=== PATIENT | female | born 1960 | race Caucasian/White ===

== ENCOUNTER 2017-06-08 18:46 | Emergency (ER) | payer MEDICAID ==
[2017-06-08] MEDS: IPRATROPIUM/ALBUTEROL (0.5MG/3MG) NEB INH ONE (20:02)
--- NOTE | 2017-06-08 20:56 | Emergency Department Record ---
History of Present Illness - General Chief Complaint: Cough Stated Complaint: COUGH,SHORT OF BREATH, HIGH BLOOD PRESSURE Time Seen by Provider: 06/08/17 19:48 Source: Patient Mode of Arrival: Ambulatory Limitations: No limitations - History of Present Illness Initial Comments: pt has green productive cough. pt has hx of copd and still smokes. she had a fever earlier. she is attempting to get in with dr schofield. she has no primary care dr. she stopped taking her bp meds. she still smokes. MD Complaint: Cough, Fever Onset/Timin -: Week(s) Severity: Mild Consistency: Constant Improves With: Nothing Worsens With: Nothing Context: Sick contacts Associated Symptoms: Chills, Cough, Shortness of breath - Related Data Home Medications Medication Instructions Recorded Confirmed Last Taken Albuterol Sulfate 0.083% [Neb] 3 ml NEB .EVERY 4-6 HOURS PRN 06/08/17 06/08/17 06/08/17 Albuterol Sulfate [Ventolin Hfa] 1 - 2 puff IH .EVERY 4-6 HOURS PRN 06/08/1706/08/17 Aspirin Chewable 81 mg PO DAILY 06/08/17 06/08/17 Unknown Previous Rx's Medication Instructions Recorded Albuterol Sulfate [Ventolin Hfa] 1 - 2 puff IH .EVERY 4-6 HRS PRN 06/08/17 #1 inhaler Azithromycin [Zithromax] 250 mg PO DAILY #4 tablet 06/08/17 Clonidine HCl [Catapres] 0.1 mg PO DAILY #5 tab 06/08/17 Lorazepam [Ativan] 0.5 mg PO BID #7 tablet 06/08/17 Allergies Allergy/AdvReac Type Severity Reaction Status Date / Time No Known Drug Allergies Allergy Verified 06/08/17 19:00 Travel Screening - Travel/Exposure Within Last 30 Days Have you traveled within the last 30 days?: No Review of Systems Reviewed: No additional complaints except as noted below Constitutional: Reports: As per HPI. Denies: Chills, Fever, Malaise, Night sweats, Weakness, Weight change Eyes: Reports: As per HPI. Denies: Eye discharge, Eye pain, Photophobia, Vision change ENT: Reports: As per HPI. Denies: Congestion, Dental pain, Ear pain, Epistaxis , Hearing loss, Throat pain Respiratory: Reports: As per HPI. Denies: Cough, Dyspnea, Hemoptysis, Stridor, Wheezes Cardiovascular: Reports: As per HPI. Denies: Arrhythmia, Chest pain, Dyspnea on exertion, Edema, Murmurs, Orthopnea, Palpitations, Paroxysmal nocturnal dyspnea, Rheumatic Fever, Syncope Endocrine: Reports: As per HPI. Denies: Fatigue, Heat or cold intolerance, Polydipsia, Polyuria Gastrointestinal: Reports: As per HPI. Denies: Abdominal pain, Constipation, Diarrhea, Hematemesis, Hematochezia, Melena, Nausea, Vomiting Genitourinary: Reports: As per HPI. Denies: Abnormal menses, Discharge, Dyspareunia, Dysuria, Frequency, Hematuria, Incontinence, Retention, Urgency Musculoskeletal: Reports: As per HPI. Denies: Arthralgia, Back pain, Gout, Joint swelling, Myalgia, Neck pain Skin: Reports: As per HPI. Denies: Bruising, Change in color, Change in hair/ nails, Lesions, Pruritus, Rash Neurological: Reports: As per HPI. Denies: Abnormal gait, Confusion, Headache, Numbness, Paresthesias, Seizure, Tingling, Tremors, Vertigo, Weakness Psychiatric: Reports: As per HPI. Denies: Anxiety, Auditory hallucinations, Depression, Homicidal thoughts, Suicidal thoughts, Visual hallucinations Hematological/Lymphatic: Reports: As per HPI. Denies: Anemia, Blood Clots, Easy bleeding, Easy bruising, Swollen glands Past Medical History - SOCIAL HISTORY Smoking Status: Current every day smoker Alcohol Use: None Drug Use: None - RESPIRATORY Hx Respiratory Disorders: Yes Hx COPD: Yes - CARDIOVASCULAR Hx Cardio Disorders: Yes Hx Heart Attack: Yes Hx Hypertension: Yes - NEURO Hx Neuro Disorders: No - GI Hx GI Disorders: No - Hx Genitourinary Disorders: No - ENDOCRINE Hx Endocrine Disorders: No - MUSCULOSKELETAL Hx Musculoskeletal Disorders: Yes Hx Fibromyalgia: Yes Comment:: Lupus - PSYCH Hx Psych Problems: No - HEMATOLOGY/ONCOLOGY Hx Hematology/Oncology Disorders: Yes Hx Cancer: Yes (cervical) Family Medical History Any Significant Family History?: Yes Hx Diabetes: Brother/Sister Hx Heart Disease: Mother Hx Resp Disorders: Father, Mother Physical Exam - General General Appearance: Alert, Oriented x3, Cooperative, Mild distress, Other ( cachectic) - Head Head exam: Normal inspection - Eye Eye exam: Normal appearance, PERRL, EOMI Pupils: Normal accommodation - ENT ENT exam: Normal exam, Mucous membranes moist, Normal external ear exam, Normal orophraynx Ear exam: Normal external inspection. negative: External canal tenderness Nasal Exam: Normal inspection. negative: Discharge, Sinus tenderness Mouth exam: Normal external inspection, Tongue normal Teeth exam: Normal inspection. negative: Dental caries Throat exam: Normal inspection. negative: Tonsillar erythema, Tonsillar exudate - Neck Neck exam: Normal inspection, Full ROM. negative: Tenderness - Respiratory Respiratory exam: Wheezes. negative: Respiratory distress - Cardiovascular Cardiovascular Exam: Regular rate, Normal rhythm, Normal heart sounds - GI/Abdominal GI/Abdominal exam: Soft, Normal bowel sounds. negative: Tenderness - Rectal Rectal exam: Deferred - exam: Deferred - Extremities Extremities exam: Normal inspection, Full ROM, Normal capillary refill. negative: Tenderness - Back Back exam: Reports: Normal inspection, Full ROM. Denies: Muscle spasm, Rash noted, Tenderness - Neurological Neurological exam: Alert, CN II-XII intact, Normal gait, Oriented X3 - Psychiatric Psychiatric exam: Normal affect, Normal mood - Skin Skin exam: Dry, Intact, Normal color, Warm Course Vital Signs 06/08/17 06/08/17 18:56 20:02 Temperature 98.6 F Pulse Rate 77 72 Respiratory 22 20 Rate Blood Pressure 186/119 Pulse Ox 92 L - Reevaluation(s) Reevaluation #1: 06/08/17 23:40 ct showsfindings consistent w bronchogenic carcinoma with mets. pt refusing admission . pt told of risks Medical Decision Making - Lab Data Result diagrams: 06/08/17 21:32 06/08/17 21:32 Disposition Disposition: Other Clinical Impression: Mass of lung, Adrenal mass, Bronchitis Hypertension Qualifiers: Hypertension type: unspecified Qualified Code(s): I10 - Essential (primary) hypertension Disposition: Against Medical Advice Condition: (2) Stable Instructions: Acute Bronchitis (ED), Hypertension (ED), Pulmonary Nodules (ED) Additional Instructions: follow up in am with dr schofield. may return at any time Prescriptions: Albuterol Sulfate [Ventolin Hfa] 1 - 2 puff IH .EVERY 4-6 HRS PRN #1 inhaler PRN Reason: Difficulty In Breathing Azithromycin [Zithromax] 250 mg PO DAILY #4 tablet Clonidine HCl [Catapres] 0.1 mg PO DAILY #5 tab Lorazepam [Ativan] 0.5 mg PO BID #7 tablet Forms: Patient Portal Access, Return to Work/School Quality - Quality Measures Quality Measures: N/A - Blood Pressure Screening Does Patient Have Any of the Following: No Blood Pressure Classification: Hypertensive Reading Systolic Measurement: 186 Diastolic Measurement: 119 Screening for High Blood Pressure: < First Hypertensive BP, F/U Documented > [ G8950] First Hypertensive Follow-up Interventions: Follow-up with rescreen GT 1 day and LT 4 weeks., Referral to alternative/primary care provider.
[2017-06-08] MEDS: AZITHROMYCIN 500 MG TABLET PO ONE (21:27)
[2017-06-08 21:34] LABS: BASO % 0.3 % (0-6); GRAN % 70.6 % (47-80); HEMATOCRIT 43.2 % (35.0-47.0); HEMOGLOBIN 14.5 gm/dl (11.6-16.0); LYMPH % 16.1 % (16-45); MEAN CELL VOLUME 94.9 fl (81-97); MEAN CORPUSCULAR HEMOGLOBIN 31.9 pg (27-33); MEAN CORPUSCULAR HGB CONC 33.6 g/dl (32-36); MEAN PLATELET VOLUME 9.8 fl (7.4-10.4); PLATELET COUNT 211 K/uL (130-400); RED BLOOD COUNT 4.55 M/uL (3.80-5.40); RED CELL DISTRIBUTION WIDTH 14.1 % (11.5-14.5); WHITE BLOOD COUNT W/O DIFF 9.3 K/uL (4.2-12.2)
[2017-06-08 21:50] LABS: CREATININE 0.9 mg/dL (0.5-0.9); EST GLOMERULAR FILTRATION RATE > 60 mL/min; GLUCOSE,RANDOM 98 mg/dL (74-109)
[2017-06-08] MEDS: 0.9 % SODIUM CHLORIDE 1,000 ML BAG IV ONE (22:34)
[2017-06-08] MEDS: CLONIDINE HCL 0.1 MG TABLET PO ONE (22:34)
[2017-06-08] MEDS ORDERED: AZITHROMYCIN 500 MG TABLET PO ONE (23:40)
[2017-06-09] MEDS: LORAZEPAM 0.5 MG TABLET PO ONE (00:03)
--- NOTE | 2017-06-09 14:45 | RADIOLOGY REPORT ---
EXAM: CHEST, TWO VIEWS HISTORY: PRODUCTIVE COUGH AND DYSPNEA FOR TWO WEEKS. COPD. TECHNIQUE: Two views of the chest were obtained. FINDINGS: The lungs are hyperaerated consistent with emphysematous change. There is suture mature within the left lung apex which may relate to previous wedge resection. Please note there is an irregular opacity within the left hilar region and anterior mediastinum. Mass not excluded. No focal consolidation or pleural effusion. Borderline cardiomegaly. IMPRESSION: 1. IRREGULAR OPACITY WITHIN THE LEFT HILAR REGION AND ANTERIOR MEDIASTINUM MASS NOT EXCLUDED. DEDICATED CT CHEST WOULD BE RECOMMENDED FOR FURTHER ASSESSMENT. 2. PROMINENT EMPHYSEMATOUS CHANGE/COPD. PREVIOUS SURGICAL CHANGE LEFT LUNG APEX. 3. BORDERLINE CARDIOMEGALY. JOB NUMBER: [id number] [facility]
--- NOTE | 2017-06-09 15:11 | CT SCAN REPORT ---
EXAM: CT OF THE CHEST WITH CONTRAST HISTORY: DYSPNEA. COPD. ABNORMAL CHEST RADIOGRAPH. TECHNIQUE: Routine CT images of the chest were obtained following intravenous administration of contrast. The amount and type of contrast is in the medical record. FINDINGS: There is marked abnormality within the chest. Note is made of a left hilar soft tissue mass measuring approximately 2 cm size range. There is associated nodular pleural thickening within the left hemithorax especially anteromedially. In addition there appears to be a loculated effusion on the left especially inferiorly with enhancing septations. Suspect bronchogenic carcinoma. In addition there is mediastinal lymph node enlargement including a left paratracheal lymph node measuring 12 mm short axis, subcarinal lymph node measuring 10 mm short axis, and 11 mm short axis right hilar lymph node. The lung parenchyma demonstrates severe emphysema. Previous wedge resection left lung apex. There is an 8 mm spiculated nodule within the posterior left upper lobe. Additionally there are at least two noncalcified pulmonary nodules within the right lower lobe measuring up to 6 mm in size. Any of these nodules could be metastatic or relate to synchronous neoplasms. Multiple enlarged lymph nodes are also present within the visualized upper abdomen also likely metastatic. There also is a 2 cm size range right adrenal nodule also probably metastatic. The aorta and pulmonary arteries enhance normally with contrast. There appears to be caliectasis involving the right kidney of unclear etiology. Consider further assessment with CT abdomen and pelvis. No clear lytic or blastic osseous lesion. IMPRESSION: 1. MARKEDLY ABNORMAL APPEARANCE OF THE LEFT CHEST ABOVE MOST CONSISTENT WITH BRONCHOGENIC CARCINOMA. NOTE IS MADE OF A MASS WITHIN THE LEFT HILAR REGION. ASSOCIATED PLEURAL AND MEDIASTINAL DISEASE. LEFT BASILAR EFFUSION WITH ENHANCING SEPTATIONS. THERE IS ASSOCIATED MEDIASTINAL AND RIGHT HILAR LYMPH NODE ENLARGEMENT WHICH ALSO EXTENDS INTO THE ABDOMEN PROBABLY METASTATIC. RIGHT ADRENAL NODULE ALSO NOTED AND PRESUMABLY METASTATIC. PET/CT MAY BE HELPFUL FOR FURTHER ASSESSMENT WELL. 2. SPICULATED NODULE LEFT UPPER LOBE WITH TWO ADDITIONAL NODULES WITHIN THE LEFT LOWER LOBE MEASURING UP TO 6 MM IN SIZE ALSO SUSPICIOUS FOR NEOPLASM. PRIOR IMAGES UNAVAILABLE FOR COMPARISON. 3. SEVERE PULMONARY EMPHYSEMA. 4. ABNORMAL APPEARANCE OF THE RIGHT KIDNEY OF UNCLEAR ETIOLOGY. RECOMMEND FURTHER ASSESSMENT WITH DEDICATED CT ABDOMEN AND PELVIS. JOB NUMBER: [id number] [facility]
== END 2017-06-09 00:18 | disposition left against medical advice (07) ==
LOC: ER 18:46
DX: C34.02 Malignant neoplasm of left main bronchus (principal); J20.9 Acute bronchitis, unspecified; R06.02 Shortness of breath; I10 Essential (primary) hypertension; J44.9 Chronic obstructive pulmonary disease, unspecified; C79.71 Secondary malignant neoplasm of right adrenal gland; I25.2 Old myocardial infarction; Z85.41 Personal history of malignant neoplasm of cervix uteri; F17.210 Nicotine dependence, cigarettes, uncomplicated
CPT/HCPCS: 99284 ×2; 85025; 80048; 71020; 71260; 94640; Q9967; J7030

== ENCOUNTER 2018-09-27 18:24 | Emergency (ER) | payer MEDICAID ==
[2018-09-27] MEDS ORDERED: IPRATROPIUM/ALBUTEROL (0.5MG/3MG) NEB INH ONE ×2 (18:52→21:08)
[2018-09-27] MEDS ORDERED: METHYLPREDNISOLONE PF 125MG/VIAL IVPB ONE (18:52)
--- NOTE | 2018-09-27 18:58 | Emergency Department Record ---
History of Present Illness - General Stated Complaint: PJ Time Seen by Provider: 09/27/18 18:50 Source: Patient Mode of Arrival: Wheelchair Limitations: No limitations - History of Present Illness Initial Comments: 58 yo female presents to ED for evaluation of progressively worsening SOB for the past 7-10 days. Patient reports a history of COPD and active lung cancer, began oral chemo in Mid-August with Dr. Vela. Patient is on a baseline 2 Liters oxygen, reports that she is requiring more oxygen at home. Patient reports productive cough, fevers, and chills as well. Patient reports seeing her it investment/portfolio manager 1 week ago, received a solumedrol shot 1 week ago. MD Complaint: Shortness of breath Onset/Timin -: Days(s) Severity: Moderate Consistency: Constant Improves With: Oxygen Worsens With: Exertion Known History Of: COPD Associated Symptoms: Cough, Fever Treatments Prior to Arrival: Bronchodilator, Oxygen - Related Data Home Oxygen Therapy: Yes Home Oxygen Amount: 2 Liters Allergies Allergy/AdvReac Type Severity Reaction Status Date / Time azithromycin Allergy Mild hives Verified 09/27/18 18:57 Review of Systems Constitutional: Reports: Chills, Fever, Malaise. Denies: Night sweats Eyes: Denies: Eye discharge, Eye pain ENT: Reports: Congestion. Denies: Ear pain, Epistaxis Respiratory: Reports: Cough, Dyspnea Cardiovascular: Reports: Dyspnea on exertion. Denies: Edema, Palpitations, Paroxysmal nocturnal dyspnea Endocrine: Denies: Fatigue, Heat or cold intolerance Gastrointestinal: Denies: Abdominal pain, Nausea, Vomiting Genitourinary: Denies: Incontinence, Retention Musculoskeletal: Denies: Arthralgia, Back pain Skin: Denies: Bruising, Change in color Neurological: Denies: Abnormal gait, Confusion, Headache, Tingling, Tremors Psychiatric: Denies: Anxiety Hematological/Lymphatic: Denies: Anemia, Blood Clots Past Medical History - SOCIAL HISTORY Smoking Status: Current every day smoker Drug Use: None - RESPIRATORY Hx Respiratory Disorders: Yes Hx COPD: Yes - CARDIOVASCULAR Hx Cardio Disorders: Yes Hx Heart Attack: Yes Hx Hypertension: Yes - NEURO Hx Neuro Disorders: No - GI Hx GI Disorders: No - Hx Genitourinary Disorders: No - ENDOCRINE Hx Endocrine Disorders: No - MUSCULOSKELETAL Hx Musculoskeletal Disorders: Yes Hx Fibromyalgia: Yes Comment:: Lupus - PSYCH Hx Psych Problems: No - HEMATOLOGY/ONCOLOGY Hx Hematology/Oncology Disorders: Yes Hx Cancer: Yes (cervical) Family Medical History Hx Diabetes: Brother/Sister Hx Heart Disease: Mother Hx Resp Disorders: Father, Mother Physical Exam - General General Appearance: Alert, Oriented x3, Cooperative, Other (Cachetic appearing on examination, decreased BS bilaterally) Limitations: No limitations - Head Head exam: Atraumatic, Normocephalic, Normal inspection Head exam detail: negative: Abrasion, Contusion, Peres's sign, General tenderness, Hematoma, Laceration - Eye Eye exam: Normal appearance. negative: Conjunctival injection, Periorbital swelling, Periorbital tenderness, Scleral icterus - ENT Ear exam: negative: Auricular hematoma, Auricular trauma Nasal Exam: negative: Active bleeding, Discharge, Dried blood, Foreign body Mouth exam: negative: Drooling, Laceration, Muffled voice, Tongue elevation - Neck Neck exam: Normal inspection. negative: Meningismus, Tenderness - Respiratory Respiratory exam: Decreased breath sounds. negative: Rhonchi, Stridor, Wheezes - Cardiovascular Cardiovascular Exam: Regular rate, Normal rhythm, Normal heart sounds - GI/Abdominal GI/Abdominal exam: Soft. negative: Distended, Rebound, Rigid, Tenderness - Rectal Rectal exam: Deferred - exam: Deferred - Extremities Extremities exam: Normal inspection. negative: Pedal edema, Tenderness - Back Back exam: Denies: CVA tenderness (R), CVA tenderness (L) - Neurological Neurological exam: Alert, Oriented X3 - Psychiatric Psychiatric exam: Normal affect, Normal mood - Skin Skin exam: Normal color. negative: Abrasion Type of lesion: negative: abrasion Course - Reevaluation(s) Reevaluation #1: 09/27/18 19:42 Laboratory studies were reviewed and appear grossly unremarkable for an acute process. Reevaluation #2: 09/27/18 20:29 CT Chest: Moderate PE left lung with occlusive emboli lower lung Severe emphysema Extensive malignancy of the left alanna-thorax with extension to the surrounding nodes and left breast [facility] 1-call contacted for transfer. Xarelto ordered to be given PO while awaiting return call from [facility] EKG: NSR 94 Normal axis, normal intervals Nonspecific ST depression II, IIII, AVF Reevaluation #3: 09/27/18 21:31 [facility] 1-call returned call, case was discussed with Dr. Valdez, will accept transfer for admission and treatment. Medical Decision Making - Lab Data Result diagrams: 09/27/18 19:13 09/27/18 19:13 Disposition Disposition: Transfer Clinical Impression: Pulmonary emboli Qualifiers: Pulmonary embolism type: unspecified Chronicity: acute Acute cor pulmonale presence: without acute cor pulmonale Qualified Code(s): I26.99 - Other pulmonary embolism without acute cor pulmonale Lung cancer Qualifiers: Laterality: left Lung location: unspecified part of lung Qualified Code(s): C34.92 - Malignant neoplasm of unspecified part of left bronchus or lung Emphysema of lung Qualifiers: Emphysema type: panlobular Qualified Code(s): J43.1 - Panlobular emphysema Disposition: Acute Care Hospital Transfer Transfer To: [facility] Reason For Transfer: PE, Lung cancer Accepting Physician: José Miguel Time Discussed w/Accepting Physician: 21:36 Condition: (2) Stable Time of Disposition: 21:36 Quality - Quality Measures Quality Measures: N/A - Blood Pressure Screening Does Patient Have Any of the Following: No Blood Pressure Classification: Hypertensive Reading Systolic Measurement: 161 Diastolic Measurement: 132 Screening for High Blood Pressure: < First Hypertensive BP, F/U Documented > [ G8950] First Hypertensive Follow-up Interventions: Referral to alternative/primary care provider.
[2018-09-27 19:21] LABS: HEMATOCRIT 43.7 % (35.0-47.0); MEAN CELL VOLUME 102.6 fl (81-97); MEAN CORPUSCULAR HEMOGLOBIN 32.9 pg (27-33); MEAN PLATELET VOLUME 9.6 fl (7.4-10.4); PLATELET COUNT 153 K/uL (130-400); RED BLOOD COUNT 4.26 M/uL (3.80-5.40); RED CELL DISTRIBUTION WIDTH 14.5 % (11.5-14.5); WHITE BLOOD COUNT W/O DIFF 10.8 K/uL (4.2-12.2)
[2018-09-27 19:36] LABS: BLOOD UREA NITROGEN 18 mg/dL (6-20); CREATININE 0.7 mg/dL (0.5-0.9); EST GLOMERULAR FILTRATION RATE > 60 mL/min
[2018-09-27 19:36] LABS: INFLUENZA A NEGATIVE (NEGATIVE); INFLUENZA B NEGATIVE (NEGATIVE)
[2018-09-27 19:37] LABS: TOTAL PROTEIN 7.3 g/dL (6.6-8.7)
[2018-09-27 19:39] LABS: GLUCOSE,RANDOM 129 mg/dL (74-109)
[2018-09-27 19:42] LABS: ALB/GLOB RATIO 1.2 (1.1-1.8); ALKALINE PHOSPHATASE 141 U/L (45-87); ALT/SGPT 25 U/L (<33); AST/SGOT 24 U/L (10.0-35.0)
[2018-09-27] MEDS ORDERED: RIVAROXABAN 15 MG TABLET PO ONE (20:48)
[2018-09-27] MEDS ORDERED: ALBUTEROL (0.5% CONCENTRATED) 2.5 MG/0.5 ML VIAL.NEB INH ONE (21:08)
[2018-09-27] MEDS ORDERED: LORAZEPAM 0.5 MG TABLET PO ONE (21:22)
--- NOTE | 2018-09-28 12:30 | CT ANGIOGRAM REPORT ---
EXAM: CT ANGIOGRAM OF THE CHEST WITH CONTRAST HISTORY: DIFFICULTY BREATHING. HYPOXIA. ACTIVE CANCER. TECHNIQUE: Standard CT angiography of the chest was performed in the axial plane with contrast. 65 ml of Omnipaque 350 were administered. Additional coronal and sagittal maximum intensity projection reformatted images were performed on an independent workstation under concurrent supervision. Comparison: 06/08/17. FINDINGS: The heart is normal in size. A small pericardial effusion is present. Coronary artery calcifications are present. There is no aortic aneurysm or dissection. The ascending aorta measures 3.1 cm in diameter. There are moderate emboli within the left pulmonary arterial tree. There are nonocclusive emboli within the left upper lobe. Occlusive emboli are noted within the left lower lobe pulmonary arterial branches. There is no right embolus. A moderate to large right pleural effusion is present. There is tiny left pleural effusion. There is a focal area of mass like consolidation within the left upper lobe which abuts the medial pleural surface and extends to the hilum. This likely corresponds to the patient's known malignancy. Extensive emphysematous changes are present within both lungs. Post surgical changes are present at the left apex. A small nodular area within the posterior right lung appears similar. Compressive atelectasis is noted at the lung bases bilaterally , right greater than left. There is lymphadenopathy within the axillary regions bilaterally. Lymphadenopathy is also noted within the mediastinum and bilateral malorie consistent with metastatic disease. There is generalized left pleural thickening. This has a nodular configuration in areas. There is abnormal nodularity involving the left breast which is suspicious for malignancy. There is mild ascites within the upper abdomen. There is diffuse thickening of the left adrenal gland. Mildly enlarged lymph nodes are present within the upper retroperitoneum. The visualized portions of the liver appear normal. A 1.4 cm sclerotic lesion is present within the left posterolateral aspect of the L1 vertebral body consistent with osseous metastatic disease. IMPRESSION: 1. MODERATE EMBOLI WITHIN THE LEFT PULMONARY ARTERIAL BRANCHES. 2. PROGRESSIVE MALIGNANCY WITHIN THE LEFT UPPER LOBE AND ALONG THE PLEURAL SURFACES. THERE IS PROGRESSIVE LYMPHADENOPATHY WITHIN THE MEDIASTINUM, PULMONARY MALORIE, BILATERAL AXILLARY REGIONS, AND UPPER RETROPERITONEUM. MASSES ARE ALSO PRESENT WITHIN THE LEFT BREAST CONSISTENT WITH MALIGNANCY. 3. 1.4 CM OSTEOBLASTIC METASTATIC LESION INVOLVING THE L1 VERTEBRAL BODY. 4. MODERATE TO LARGE RIGHT PLEURAL EFFUSION AND SMALL LEFT PLEURAL EFFUSION. 5. EXTENSIVE EMPHYSEMATOUS CHANGES WITHIN THE LUNGS. JOB NUMBER: [id number] [facility]
== END 2018-09-27 22:41 | disposition short-term general hospital (02) ==
LOC: ER 18:24
DX: I26.99 Other pulmonary embolism without acute cor pulmonale (principal); J43.1 Panlobular emphysema; C34.12 Malignant neoplasm of upper lobe, left bronchus or lung; C79.51 Secondary malignant neoplasm of bone; R05 Cough; J44.9 Chronic obstructive pulmonary disease, unspecified; I10 Essential (primary) hypertension; I25.2 Old myocardial infarction; F17.210 Nicotine dependence, cigarettes, uncomplicated
CPT/HCPCS: 99285 ×2; 96374; 80053; 87400; 85027; 71275; 94640 ×2; 93005; 93010; Q9967; J2930